=== PATIENT | male | born 1990 | race African-American/Black ===

== ENCOUNTER 2016-09-08 16:23 | Emergency (ER) | payer MEDICAID ==
[~2016-09-08] VITALS: Ht 185.4 cm; Wt 102.0 kg
[2016-09-08 17:18] VITALS: BP 148/78
[2016-09-08] MEDS ORDERED: KETOROLAC 30MG/ML VIAL IV ONE (18:45)
== END 2016-09-08 20:34 | disposition home or self-care (01) ==
LOC: ER 18:17
DX: M54.5 Low back pain (principal); M25.562 Pain in left knee; V49.9XXA Car occupant (driver) (passenger) injured in unspecified traffic accident, initial encounter; Y93.89 Activity, other specified; Y92.89 Other specified places as the place of occurrence of the external cause; Y99.8 Other external cause status
CPT/HCPCS: 73590; 96374; 99284; J1885